=== PATIENT | female | born 1965 | race African-American/Black ===

== ENCOUNTER → 2017-06-23 | Outpatient (CLI) | payer OTHER ==
--- NOTE | 2017-06-23 15:31 | WOMENS IMAGING REPORT ---
EXAM DESCRIPTION: BILAT SCREENING MAMMO W/CAD COMPLETED DATE/TIME: 06/23/2017 3:12 pm REASON FOR STUDY: SCREENING MAMMO Z12.31 ENCNTR SCREEN MAMMOGRAM FOR MALIGNANT NEOPLASM OF JUDIE COMPARISON: Multiple since 2008 TECHNIQUE: Standard craniocaudal and mediolateral oblique views of each breast recorded using digita l acquisition. LIMITATIONS: None. FINDINGS: No masses, calcifications or architectural distortion. No areas of suspicion. Read with the assistance of CAD. .[facility] - R2 Cenova Version 1.3 .[facility] - R2 Cenova Version 1.3 .[facility] - R2 Cenova Version 2.4 .[facility] [place] Cenova Version 2.4 .[facility] - R2 B[employer] Filling Machine Operator Version 9.2 IMPRESSION: NORMAL MAMMOGRAM. BIRADS 1. BREAST DENSITY: c. The breasts are heterogeneously dense, which may obscure small masses. BIRAD: 1 NEGATIVE RECOMMENDATION: ROUTINE SCREENING Please consider bilateral screening tomosynthesis in June 2018 COMMENT: The patient has been notified of the results by letter per SA requirements. Additional no tification policies are in place for contacting patient with suspicious or incomplete findings. Quality ID #[id number]: The [employer] recommends an annual screening mammogram for women aged 40 years or over. This facility utilizes a reminder system to ensure that all patients receive reminder letters, and/or direct phone calls for appointments. This includes reminders for routine scr eening mammograms, diagnostic mammograms, or other Breast Imaging Interventions when appropriate. Th is patient will be placed in the appropriate reminder system. The [employer] (ACR) has developed recommendations for screening MRI of the breast s in certain patient populations, to be used in conjunction with mammography. Breast MRI surveillanc e may be appropriate for women with more than 20% lifetime risk of developing breast cancer as deter mined by genetic testing, significant family history of the disease, or history of mantle radiation f or Hodgkins Disease. ACR Practice Guidelines 2008. TECHNICAL DOCUMENTATION: FINDING NUMBER: (1) ASSESSMENT: (1) JOB ID: [id number] [employer]- All Rights Reserved
== END ==
LOC: WI 14:54
PROVIDERS: ATTEND Internal Medicine
DX: Z12.31 Encounter for screening mammogram for malignant neoplasm of breast (principal)
CPT/HCPCS: 77067; G0202

== ENCOUNTER → 2017-07-20 | Outpatient (CLI) | payer OTHER | LOC: WI 10:21 | PROVIDERS: ATTEND Internal Medicine | DX: N63.11 Unspecified lump in the right breast, upper outer quadrant (principal); Z53.8 Procedure and treatment not carried out for other reasons ==

== ENCOUNTER 2018-05-02 12:43 | Inpatient (IN) | payer OTHER ==
[2018-05-02] MEDS ORDERED: LEVOFLOXACIN 750 MG TABLET PO ONE (13:42)
[2018-05-02] MEDS ORDERED: KETOROLAC TROMETHAMINE INJ/PF 30 MG/1 ML SDV IV ONE (13:42)
[2018-05-02] MEDS ORDERED: DIPHENHYDRAMINE HCL 50 MG/ML VIAL IV ONE (13:42)
[2018-05-02] MEDS ORDERED: METOCLOPRAMIDE HCL INJ/PF 10 MG/2 ML SDV IV ONE (13:42)
--- NOTE | 2018-05-02 13:47 | ER Document Report ---
ED General - General Chief Complaint: Headache Stated Complaint: HEADACHE/FEVER Time Seen by Provider: 05/02/18 13:36 Notes: 53-year-old female long-established migraine headache history presents to the ER with a severe migraine headache for over a week. Seen in the emergency department earlier in a week and has not gotten better. Patient reports fever but denies neck stiffness. Complains of severe pain behind her left eye. There is no thunderclap no rapid onset. Not worst headache of life just lasting longer than it usually does she has tried everything she usually does for her headaches. She was seen in the ER that went to her family doctor today and was sent here for direct admission. We have no beds upstairs so we will see her through the ER and then admit her as a bed becomes available. TRAVEL OUTSIDE OF THE [place] IN LAST 30 DAYS: No - Related Data Allergies/Adverse Reactions: No Known Allergies Allergy (Unverified 05/02/18 13:40) Past Medical History - Social History Smoking Status: Never Smoker Frequency of alcohol use: None Drug Abuse: None Family History: Reviewed & Not Pertinent Patient has suicidal ideation: No Patient has homicidal ideation: No - Past Medical History Cardiac Medical History: Comment Only: Hx Hypercholesterolemia - Takes medication for prevention, Hx Hypertension - Takes Cozaar for prevention Pulmonary Medical History: Denies: Hx Tuberculosis Neurological Medical History: Reports: Hx Migraine Endocrine Medical History: Reports: Hx Diabetes Mellitus Type 2 Renal/ Medical History: Denies: Hx Peritoneal Dialysis Past Surgical History: Reports: Hx Section - x 2, Hx Gynecologic Surgery - d & c. Denies: Hx Pacemaker - Immunizations Hx Diphtheria, Pertussis, Tetanus Vaccination: No Review of Systems - Review of Systems Constitutional: Fever. denies: Chills EENT: denies: Sinus pressure, Sinus discharge, Throat swelling Gastrointestinal: Nausea, Vomiting. denies: Diarrhea Neurological/Psychological: Headaches -: Yes All other systems reviewed and negative Physical Exam - Vital signs Vitals: Temp Pulse Resp BP Pulse Ox 98.2 F 106 H 16 99/66 L 100 05/02/18 12:50 05/02/18 12:50 05/02/18 12:50 05/02/18 12:50 05/02/18 12:50 - Notes Notes: GENERAL_APPEARANCE: well_nourished, alert, cooperative, appears very uncomfortable VITALS: reviewed, see vital signs table. HEAD: no_swelling\tenderness on the head. EYES: PERRL, EOMI, conjunctiva_clear. NOSE: no_nasal_discharge. MOUTH: (-)decreased moisture. THROAT: no_throat _inflammation, no_airway_obstruction. no_lymphadenopathy NECK: supple, no_neck_tenderness, (-)thyromegaly. No meningismus BACK: no_back_tenderness. CHEST_WALL: no_chest_tenderness. LUNGS: no_wheezing, no_rales, no_rhonchi, (-)accessory muscle use, good air exchange bilateral. HEART: normal_rate, normal_rhythm, normal_S1, normal_S2, (-)S3, (-)S4, no_ murmur, no_rub. ABDOMEN: normal_BS, soft, no_abd_tenderness, (-)guarding, (-)rebound, no_ organomegaly, no_abd_masses. EXTREMITIES: strength 5/5 in all_extremities, good pulses in all_extremities, no_swelling\tenderness in the extremities, no_edema. SKIN: warm, dry, good_color, no_rash. No petechia MENTAL_STATUS: speech_clear, oriented_X_3, normal_affect, responds_ appropriately to questions. NEURO: Neg Motor or Sensory Deficits on exam, CN 2-12 intact, DTR 2+ symmetric x 4, No cerbellar signs Course - Re-evaluation Re-evalutation: 05/02/18 13:45 This was sent in for direct admission. I did initially ER evaluation with a head CT since he has not had one in a while Some IV fluid check some generalized labs. Dr. Lange send in a list of orders he wants complete Give a dose of antibiotics per his recommendation. Patient has no meningismus or nuchal rigidity no purpura or petechiae nothing to suggest meningitis at this time. - Vital Signs Vital signs: Temp Pulse Resp BP Pulse Ox 98.2 F 106 H 16 99/66 L 100 05/02/18 12:50 05/02/18 12:50 05/02/18 12:50 05/02/18 12:50 05/02/18 12:50 Discharge - Discharge Clinical Impression: Headache, migraine, intractable, with status migrainosus Qualifiers: Migraine type: chronic without aura Qualified Code(s): G43.711 - Chronic migraine without aura, intractable, with status migrainosus Condition: Good Disposition: ADMITTED OBSERVATION Admitting Provider: Esmer Unit Admitted: Medical Floor Referrals: TANYA LANGE MD [Primary Care Provider] - Follow up as needed
[2018-05-02 15:43] LABS: APPEARANCE,URINE SLIGHTLY-CLOUDY; BILIRUBIN,URINE NEGATIVE (NEGATIVE); COLOR,URINE YELLOW; GLUCOSE, URINE >=500 mg/dL (NEGATIVE); KETONES,URINE 80 mg/dL (NEGATIVE); LEUKOCYTE ESTERASE,URINE MODERATE (NEGATIVE); NITRITE,URINE NEGATIVE (NEGATIVE); PROTEIN,URINE NEGATIVE (NEGATIVE); URINE SPECIFIC GRAVITY 1.042; UROBILINOGEN,URINE NEGATIVE mg/dL (<2.0)
--- NOTE | 2018-05-02 16:10 | RADIOLOGY REPORT (SQ) ---
EXAM DESCRIPTION: CHEST 2 VIEWS COMPLETED DATE/TIME: 05/02/2018 3:51 pm REASON FOR STUDY: headache fever COMPARISON: 09/04/2012. EXAM PARAMETERS: NUMBER OF VIEWS: two views TECHNIQUE: Digital Frontal and Lateral radiographic views of the chest acquired. RADIATION DOSE: NA LIMITATIONS: none FINDINGS: LUNGS AND PLEURA: No opacities, masses or pneumothorax. No pleural effusion. MEDIASTINUM AND HILAR STRUCTURES: No masses or contour abnormalities. HEART AND VASCULAR STRUCTURES: Heart normal size. No evidence for failure. BONES: No acute findings. HARDWARE: None in the chest. OTHER: No other significant finding. IMPRESSION: 1 No significant interval changes since the prior examination dated 09/04/2012. No acut e findings. TECHNICAL DOCUMENTATION: JOB ID: [id number] [employer])- All Rights Reserved Reading location - IP/workstation name: [email or web address]
--- NOTE | 2018-05-02 16:17 | RADIOLOGY REPORT (SQ) ---
EXAM DESCRIPTION: CT HEAD WITHOUT COMPLETED DATE/TIME: 05/02/2018 3:37 pm REASON FOR STUDY: headache fever COMPARISON: None. TECHNIQUE: Axial images acquired through the brain without intravenous contrast. Images reviewed wi th bone, brain and subdural windows. Additional sagittal and coronal reconstructions were generated. Images stored on PACS. All CT scanners at this facility use dose modulation, iterative reconstruction, and/or weight based d osing when appropriate to reduce radiation dose to as low as reasonably achievable (ALARA). [facility]: Dose Right [facility]: CareDose [facility]: Dose Right [facility]: Teradose 4D [facility]: [employer] RADIATION DOSE: CT Rad equipment meets quality standard of care and radiation dose reduction techniq ues were employed. CTDIvol: 53.2 mGy. DLP: 1017 mGy-cm. mGy. LIMITATIONS: None. FINDINGS: VENTRICLES: Normal size and contour. CEREBRUM: No masses. No hemorrhage. No midline shift. No evidence for acute infarction. Normal gra y/white matter differentiation. No areas of low density in the white matter. CEREBELLUM: No masses. No hemorrhage. No alteration of density. No evidence for acute infarction. EXTRAAXIAL SPACES: No fluid collections. No masses. ORBITS AND GLOBE: No intra- or extraconal masses. Normal contour of globe without masses. CALVARIUM: No fracture. PARANASAL SINUSES: No fluid or mucosal thickening. SOFT TISSUES: No mass or hematoma. OTHER: No other significant finding. IMPRESSION: NORMAL BRAIN CT WITHOUT CONTRAST. EVIDENCE OF ACUTE STROKE: NO. COMMENT: Quality ID # [id number]: Final reports with documentation of one or more dose reduction techniques (e.g., Automated exposure control, adjustment of the mA and/or kV according to patient size, use of iterative reconstruction technique) TECHNICAL DOCUMENTATION: JOB ID: [id number] [employer]- All Rights Reserved Reading location - IP/workstation name: [email or web address]
[2018-05-02] MEDS: NORMAL SALINE 1000 ML 1,000 ML IV PRN ×2 (16:31→23:18)
[2018-05-02 17:00] LABS: BLOOD UREA NITROGEN 21 mg/dL (7-20); CALCIUM 10.2 mg/dL (8.4-10.2); CARBON DIOXIDE 23 mmol/L (22-30); CHLORIDE 105 mmol/L (98-107); GLUCOSE 151 mg/dL (75-110); POTASSIUM 4.5 mmol/L (3.6-5.0); SODIUM 142.6 mmol/L (137-145)
[2018-05-02 17:01] LABS: ALANINE AMINOTRANSFERASE 25 U/L (9-52); ALKALINE PHOSPHATASE 67 U/L (38-126); ANION GAP 15 (5-19); ASPARTATE AMINO TRANSFERASE 30 U/L (14-36); BILIRUBIN,DIRECT 0.3 mg/dL (0.0-0.4); BILIRUBIN,TOTAL 0.5 mg/dL (0.2-1.3); TOTAL PROTEIN 7.3 g/dL (6.3-8.2)
[2018-05-02 17:15] LABS: FREE T4 (FREE THYROXINE) 2.72 ng/dL (0.78-2.19)
[2018-05-02 17:31] LABS: THYROID STIMULATING HORMONE < 0.01 uIU/mL (0.47-4.68)
[2018-05-02] MEDS ORDERED: NORMAL SALINE 1000 ML 1,000 ML IV PRN ×2 (17:48→22:59)
[2018-05-02 17:57] LABS: ABSOLUTE EOSINOPHILS # (AUTO) 0.1 10^3/uL (0.0-0.6); ABSOLUTE LYMPHOCYTES (AUTO) 1.7 10^3/uL (0.5-4.7); ABSOLUTE MONOCYTES (AUTO) 0.7 10^3/uL (0.1-1.4); ABSOLUTE NEUT (AUTO) 2.9 10^3/uL (1.7-8.2); BASOPHILS % (AUTO) 0.3 % (0-2); EOSINOPHILS % (AUTO) 1.2 % (0-6); HEMATOCRIT 36.6 % (36.0-47.0); HEMOGLOBIN 11.8 g/dL (12.0-15.5); LYMPHOCYTES % (AUTO) 32.3 % (13-45); MEAN CORPUSCULAR HEMOGLOBIN 25.9 pg (27.0-33.4); MEAN CORPUSCULAR HGB CONC 32.1 g/dL (32.0-36.0); MEAN CORPUSCULAR VOLUME 81 fl (80-97); MONOCYTES % (AUTO) 12.3 % (3-13); PLATELET COUNT 251 10^3/uL (150-450); RED BLOOD COUNT 4.55 10^6/uL (3.72-5.28); RED CELL DISTRIBUTION WIDTH 15.2 % (11.5-14.0); SEGMENTED NEUTROPHILS % (AUTO) 53.9 % (42-78); TOTAL CELLS COUNTED % (AUTO) 100 %; WHITE BLOOD COUNT 5.4 10^3/uL (4.0-10.5)
[2018-05-02] MEDS ORDERED: LEVOFLOXACIN 750 MG/D5W RTU 750 MG/150 ML RTUPB IV SCH (18:00)
[2018-05-02] MEDS ORDERED: ENOXAPARIN SODIUM INJ 40 MG/0.4 ML DISP.SYRIN SUBCUT ONE (18:00)
[2018-05-02] MEDS: KETOROLAC TROMETHAMINE INJ/PF 30 MG/1 ML SDV IV SCH ×2 (19:26→23:17)
--- NOTE | 2018-05-02 21:39 | PDOC H&P ---
History of Present Illness Admission Date/PCP: 05/02/18 17:48 TANYA LANGE MD History of Present Illness: ANN SPANGLER is a 53 year old female she came to the office for follow-up evaluation from the emergency room, she was in the emergency room on Wednesday for evaluation of a headache, she had a history of migraine headache. She was treated in the emergency room, she was advised to follow-up with us in the office. She was seen and evaluated in the office, the blood pressure recorded was low on the heart rate was elevated. The blood work that was done in the office demonstrated low TSH, elevated T4 suggesting hyperthyroidism on direct questioning she admitted to occasional loose diarrhea, heat intolerance palpitation. There is no evidence of thyroid storm. She was admitted and treated with IV fluid pain control achieved with tramadol, the urinalysis showed bacteriuria, pyuria empirically treated with IV antibiotic. The low TSH and elevated T4 could also be from sick euthyroid syndrome, she would need repeat thyroid function test on discharge Past Medical History Cardiac Medical History: Comment Only: Hyperlipidema - Takes medication for prevention Neurological Medical History: Reports: Migraine Endocrine Medical History: Reports: Diabetes Mellitus Type 2 Past Surgical History Past Surgical History: Reports: Section - x 2 Social History Smoking Status: Never Smoker Hx Recreational Drug Use: No Drugs: None Hx Prescription Drug Abuse: No - Advance Directive Resuscitation Status: Full Code Family History Family History: Reviewed & Not Pertinent Parental Family History Reviewed: Yes Children Family History Reviewed: Yes Sibling(s) Family History Reviewed.: Yes Medication/Allergy Home Medications: Aspirin [Aspirin EC] 81 mg PO DAILY 05/02/18 Empagliflozin [Jardiance] 25 mg PO DAILY 05/02/18 Losartan Potassium [Cozaar 100 mg Tablet] 100 mg PO DAILY 05/02/18 Pravastatin Sodium [Pravachol] 40 mg PO DAILY 05/02/18 Sitagliptin Phos/Metformin HCl [Janumet 50-1,000 mg Tablet] 1 each PO Q12 Topiramate [Topamax] 50 mg PO DAILY 05/02/18 Butalb/Acetaminophen/Caffeine [Fioricet (50-325-40 mg) Tablet] 1 tab PO Q4HP PRN #30 tab 05/03/18 Metoprolol Tartrate 25 mg PO BID #60 tablet 05/03/18 Allergies/Adverse Reactions: No Known Allergies Allergy (Unverified 05/02/18 16:44) Review of Systems Constitutional: PRESENT: headache(s) Eyes: ABSENT: visual disturbances Ears: ABSENT: hearing changes Cardiovascular: ABSENT: chest pain, dyspnea on exertion, edema, orthropnea, palpitations Respiratory: ABSENT: cough, hemoptysis Gastrointestinal: ABSENT: abdominal pain, constipation, diarrhea, hematemesis, hematochezia, nausea, vomiting Genitourinary: ABSENT: dysuria, hematuria Musculoskeletal: ABSENT: joint swelling Integumentary: ABSENT: rash, wounds Neurological: ABSENT: abnormal gait, abnormal speech, confusion, dizziness, focal weakness, syncope Psychiatric: ABSENT: anxiety, depression, homidical ideation, suicidal ideation Endocrine: PRESENT: heat intolerance. ABSENT: cold intolerance, menstrual abnormalities, polydipsia, polyuria Hematologic/Lymphatic: ABSENT: easy bleeding, easy bruising, lymphadenopathy Physical Exam Vital Signs: Temp Pulse Resp BP Pulse Ox 98.5 F 99 16 90/45 L 99 05/02/18 17:15 05/02/18 17:15 05/02/18 17:15 05/02/18 17:15 05/02/18 17:15 General appearance: PRESENT: no acute distress, well-developed, well-nourished Head exam: PRESENT: atraumatic, normocephalic Eye exam: PRESENT: conjunctiva pink, EOMI, PERRLA Ear exam: PRESENT: normal external ear exam Mouth exam: PRESENT: moist, tongue midline Neck exam: PRESENT: full ROM Cardiovascular exam: PRESENT: RRR, +S1, +S2 Vascular exam: PRESENT: normal capillary refill GI/Abdominal exam: PRESENT: normal bowel sounds, soft Rectal exam: PRESENT: deferred Neurological exam: PRESENT: alert, awake, oriented to person, oriented to place , oriented to time, oriented to situation, CN II-XII grossly intact Psychiatric exam: PRESENT: appropriate affect, normal mood Skin exam: PRESENT: dry, intact, warm Results Impressions: Chest X-Ray 05/02/18 13:39 IMPRESSION: 1 No significant interval changes since the prior examination dated 09/04/2012. No acute findings. Head CT 05/02/18 13:39 IMPRESSION: NORMAL BRAIN CT WITHOUT CONTRAST. EVIDENCE OF ACUTE STROKE: NO. Assessment & Plan - Diagnosis (1) Headache, migraine, intractable, with status migrainosus Qualifiers: Migraine type: chronic without aura Qualified Code(s): G43.711 - Chronic migraine without aura, intractable, with status migrainosus Is this a current diagnosis for this admission?: Yes Plan: Start Toradol 30 mg IV every 6 4 doses (2) Hyperthyroidism Is this a current diagnosis for this admission?: Yes Plan: The blood tests suggest hyperthyroidism,she would need to have a repeat thyroid function test
[2018-05-02] MEDS ORDERED: DEXTROSE 50%-WATER SYRINGE 25 GM/50 ML DOSE IV PRN (22:57)
[2018-05-02] MEDS ORDERED: DEXTROSE 50%-WATER SYRINGE 12.5 GM/25 ML DOSE IV PRN (22:57)
[2018-05-02] MEDS ORDERED: DEXTROSE 40% GEL 15 GM TUBE X 2 PO PRN (22:57)
[2018-05-02] MEDS ORDERED: DEXTROSE 40% GEL 15 GM TUBE PO PRN (22:57)
[2018-05-02] MEDS ORDERED: GLUCAGON,HUMAN RECOMB 1 MG INJ IM PRN (22:57)
[2018-05-02] MEDS ORDERED: NORMAL SALINE 1000 ML 1,000 ML IV ONE (23:00)
[2018-05-02] MEDS ORDERED: METFORMIN HCL 500 MG TABLET PO ONE (23:00)
[2018-05-02] MEDS: INSULIN REG, HUMAN 100 UNIT/ML 3 ML VIAL (PYX) SUBCUT PRN (23:18)
[2018-05-02] MEDS ORDERED: SITAGLIPTIN PHOSPHATE 50 MG TABLET PO ONE (23:30)
[2018-05-02] MEDS ORDERED: SITAGLIPTIN PHOSPHATE 50 MG TABLET ONE (23:35)
[2018-05-03] MEDS: KETOROLAC TROMETHAMINE INJ/PF 30 MG/1 ML SDV IV SCH ×3 (05:06→18:04)
[2018-05-03] MEDS: NORMAL SALINE 1000 ML 1,000 ML IV PRN ×2 (05:07→12:14)
[2018-05-03 07:41] LABS: ALANINE AMINOTRANSFERASE 33 U/L (9-52); ALBUMIN 3.2 g/dL (3.5-5.0); ALKALINE PHOSPHATASE 56 U/L (38-126); ASPARTATE AMINO TRANSFERASE 19 U/L (14-36); BILIRUBIN,DIRECT 0.2 mg/dL (0.0-0.4); BILIRUBIN,TOTAL 0.4 mg/dL (0.2-1.3); TOTAL PROTEIN 5.8 g/dL (6.3-8.2)
[2018-05-03] MEDS: METFORMIN HCL 500 MG TABLET PO SCH ×2 (08:48→16:21)
[2018-05-03 09:12] LABS: FREE T3 8.51 pg/mL (2.77-5.27)
[2018-05-03 09:32] LABS: THYROID STIMULATING HORMONE < 0.01 uIU/mL (0.47-4.68)
[2018-05-03] MEDS: SITAGLIPTIN PHOSPHATE 50 MG TABLET PO SCH ×2 (09:34→16:21)
[2018-05-03] MEDS ORDERED: LEVOFLOXACIN 750 MG/D5W RTU 750 MG/150 ML RTUPB IV SCH (10:00)
[2018-05-03 15:52] LABS: ALANINE AMINOTRANSFERASE 23 U/L (9-52); ALKALINE PHOSPHATASE 56 U/L (38-126); ANION GAP 13 (5-19); ASPARTATE AMINO TRANSFERASE 20 U/L (14-36); BILIRUBIN,DIRECT 0.1 mg/dL (0.0-0.4); BILIRUBIN,TOTAL 0.1 mg/dL (0.2-1.3); BLOOD UREA NITROGEN 18 mg/dL (7-20); CALCIUM 9.6 mg/dL (8.4-10.2); CARBON DIOXIDE 20 mmol/L (22-30); CHLORIDE 110 mmol/L (98-107); GLUCOSE 184 mg/dL (75-110); POTASSIUM 4.7 mmol/L (3.6-5.0); SODIUM 142.5 mmol/L (137-145); TOTAL PROTEIN 5.9 g/dL (6.3-8.2)
[2018-05-03] MEDS: INSULIN REG, HUMAN 100 UNIT/ML 3 ML VIAL (PYX) SUBCUT PRN (16:20)
--- NOTE | 2018-05-03 17:06 | PDOC DISCHARGE SUMMARY ---
General - Admit/Disc Date/PCP Admission Date/Primary Care Provider: 05/02/18 17:48 TANYA LANGE MD Discharge Date: 05/03/18 - Discharge Diagnosis (1) Headache, migraine, intractable, with status migrainosus Is this a current diagnosis for this admission?: Yes (2) Hyperthyroidism Is this a current diagnosis for this admission?: Yes - Additional Information Resuscitation Status: Full Code Prescriptions: Butalb/Acetaminophen/Caffeine [Fioricet (50-325-40 mg) Tablet] 1 tab PO Q4HP PRN #30 tab PRN Reason: RX: Metoprolol Tartrate 25 mg PO BID #60 tablet Home Medications: RX: Aspirin [Aspirin EC] 81 mg PO DAILY 05/02/18 RX: Empagliflozin [Jardiance] 25 mg PO DAILY 05/02/18 RX: Losartan Potassium [Cozaar 100 mg Tablet] 100 mg PO DAILY 05/02/18 RX: Pravastatin Sodium [Pravachol] 40 mg PO DAILY 05/02/18 RX: Sitagliptin Phos/Metformin HCl [Janumet 50-1,000 mg Tablet] 1 each PO Q12 RX: Topiramate [Topamax] 50 mg PO DAILY 05/02/18 Butalb/Acetaminophen/Caffeine [Fioricet (50-325-40 mg) Tablet] 1 tab PO Q4HP PRN #30 tab 05/03/18 RX: Metoprolol Tartrate 25 mg PO BID #60 tablet 05/03/18 History of Present Illness History of Present Illness: ANN SPANGLER is a 53 year old female she came to the office for follow-up evaluation from the emergency room, she was in the emergency room on Wednesday for evaluation of a headache, she had a history of migraine headache. She was treated in the emergency room, she was advised to follow-up with us in the office. She was seen and evaluated in the office, the blood pressure recorded was low on the heart rate was elevated. The blood work that was done in the office demonstrated low TSH, elevated T4 suggesting hyperthyroidism on direct questioning she admitted to occasional loose diarrhea, heat intolerance palpitation. There is no evidence of thyroid storm. She was admitted and treated with IV fluid pain control achieved with tramadol, the urinalysis showed bacteriuria, pyuria empirically treated with IV antibiotic. The low TSH and elevated T4 could also be from sick euthyroid syndrome, she would need repeat thyroid function test on discharge Hospital Course Hospital Course: Patient was admitted for the management of severe headache, blood test showed hyperthyroidism. She has a history of severe migraine headache, she was treated with IV Toradol hydration with fluid, she was brought in for observation. The blood tests demonstrated low TSH and elevated T4, this could also represent sick euthyroid syndrome. We need to do repeat thyroid function tests outpatient Physical Exam Vital Signs: Temp Pulse Resp BP Pulse Ox 98.5 F 94 18 111/69 98 05/03/18 15:31 05/03/18 15:31 05/03/18 15:31 05/03/18 15:31 05/03/18 15:31 Intake & Output 05/02/18 05/03/18 05/04/18 06:59 06:59 06:59 Intake Total 2113 1473 Output Total 400 Balance 1713 1473 General appearance: PRESENT: no acute distress, well-developed, well-nourished Head exam: PRESENT: atraumatic, normocephalic Eye exam: PRESENT: conjunctiva pink, EOMI, PERRLA. ABSENT: scleral icterus Ear exam: PRESENT: normal external ear exam Mouth exam: PRESENT: moist, tongue midline Neck exam: PRESENT: full ROM Respiratory exam: PRESENT: clear to auscultation ceasar Cardiovascular exam: PRESENT: RRR, +S1, +S2 Vascular exam: PRESENT: normal capillary refill GI/Abdominal exam: PRESENT: normal bowel sounds, soft Rectal exam: PRESENT: deferred Neurological exam: PRESENT: alert, awake, oriented to person, oriented to place , oriented to time, oriented to situation, CN II-XII grossly intact Psychiatric exam: PRESENT: appropriate affect, normal mood Skin exam: PRESENT: dry, intact, warm Results Laboratory Results: 05/03/18 15:28 05/03/18 05/03/18 05/03/18 06:49 06:49 15:28 Sodium 142.5 Potassium 4.7 Chloride 110 H Carbon Dioxide 20 L Anion Gap 13 BUN 18 Creatinine 0.55 Est GFR ( Amer) > 60 Est GFR (Non-Af Amer) > 60 Glucose 184 H Calcium 9.6 Total Bilirubin 0.4 0.1 L AST 19 20 ALT 33 23 Alkaline Phosphatase 56 56 Total Protein 5.8 L 5.9 L Albumin 3.2 L 3.0 L TSH < 0.01 L Free T3 pg/mL 8.51 H Impressions: Chest X-Ray 05/02/18 13:39 IMPRESSION: 1 No significant interval changes since the prior examination dated 09/04/2012. No acute findings. Head CT 05/02/18 13:39 IMPRESSION: NORMAL BRAIN CT WITHOUT CONTRAST. EVIDENCE OF ACUTE STROKE: NO. Qualifiers - * PATIENT BEING DISCHARGED WITH ANY OF THE FOLLOWING DIAGNOSIS: No
[2018-05-03 17:54] VITALS: BP 105/54
[2018-05-03] MEDS ORDERED: ENOXAPARIN SODIUM INJ 40 MG/0.4 ML DISP.SYRIN SUBCUT SCH (18:00)
== END 2018-05-03 06:20 | disposition home or self-care (01) | DRG 103 ==
LOC: ER 12:43 → EH 14:52 → 2S 17:07 → OBSVTOIN 17:48
PROVIDERS: ADMIT Internal Medicine; ATTEND Internal Medicine
DX: G43.911 Migraine, unspecified, intractable, with status migrainosus (principal); I10 Essential (primary) hypertension; E05.90 Thyrotoxicosis, unspecified without thyrotoxic crisis or storm; E78.00 Pure hypercholesterolemia, unspecified; E11.9 Type 2 diabetes mellitus without complications; Z79.82 Long term (current) use of aspirin; Z79.899 Other long term (current) drug therapy
CPT/HCPCS: 36415; 70450; 71046; 80053; 80076; 81001; 82962; 83036; 83690; 84439; 84443; 84481; 85025; 87040; 87086; 96374; 96375; 99285; J1200; J1650; J1815; J1885; J1956; J2765; J7030

== ENCOUNTER → 2018-08-26 | Outpatient (CLI) | payer OTHER ==
--- NOTE | 2018-08-26 13:42 | WOMENS IMAGING REPORT ---
EXAM DESCRIPTION: 3D SCREENING MAMMO BILAT COMPLETED DATE/TIME: 08/26/2018 10:48 am REASON FOR STUDY: BILATERAL SCREENING MAMMO /Z12.31 Z12.31 ENCNTR SCREEN MAMMOGRAM FOR MALIGNANT NE OPLASM OF JUDIE COMPARISON: Multiple since 2008 TECHNIQUE: Standard craniocaudal and mediolateral oblique views of each breast recorded using digita l acquisition and breast tomosynthesis. LIMITATIONS: None. FINDINGS: No masses, calcifications or architectural distortion. No areas of suspicion. Read with the assistance of CAD. .[facility] - R2 Cenova Version 1.3 .[facility] Imaging - R2 Cenova Version 1.3 .[facility] - R2 Cenova Version 2.4 .[facility] [place] Cenova Version 2.4 .[facility] - R2 Boat Loader Helper Version 9.2 IMPRESSION: NORMAL MAMMOGRAM. BIRADS 1. BREAST DENSITY: c. The breasts are heterogeneously dense, which may obscure small masses. BIRAD: 1 NEGATIVE RECOMMENDATION: ROUTINE SCREENING Please continue yearly bilateral screening mammography/tomosynthesis in August 2019 COMMENT: The patient has been notified of the results by letter per MQSA requirements. Additional no tification policies are in place for contacting patient with suspicious or incomplete findings. Quality ID #[id number]: The [employer] recommends an annual screening mammogram for women aged 40 years or over. This facility utilizes a reminder system to ensure that all patients receive reminder letters, and/or direct phone calls for appointments. This includes reminders for routine scr eening mammograms, diagnostic mammograms, or other Breast Imaging Interventions when appropriate. Th is patient will be placed in the appropriate reminder system. The [employer] (ACR) has developed recommendations for screening MRI of the breast s in certain patient populations, to be used in conjunction with mammography. Breast MRI surveillanc e may be appropriate for women with more than 20% lifetime risk of developing breast cancer as deter mined by genetic testing, significant family history of the disease, or history of mantle radiation f or Hodgkins Disease. ACR Practice Guidelines 2008. DBT Technology DBT is a type of tomographic mammography. With conventional mammography, overlapping breast tissue ma y make lesions difficult to detect, even with good compression. DBT uses an x-ray tube that rotates a round the breast, taking images at different angles. These images are then combined to create thin sl ices of the breast that the radiologist can view as a 3D reconstruction. The [employer] unit can perform full-field digital mammograms (2D imaging); or DBT (3D imaging); or both, in a combination mode that quickly performs both the mammogram and the tomosynthesis scan while the breast is still compressed. PQRS 6045F: Fluoroscopic imaging is not utilized for breast tomosynthesis. TECHNICAL DOCUMENTATION: FINDING NUMBER: (1) ASSESSMENT: (1) JOB ID: [id number] [employer]- All Rights Reserved Reading location - IP/workstation name: [email or web address]
== END ==
LOC: WI 10:07
PROVIDERS: ATTEND Internal Medicine
DX: Z12.31 Encounter for screening mammogram for malignant neoplasm of breast (principal)
CPT/HCPCS: 77063; 77067

== ENCOUNTER 2019-05-18 11:00 | Observation (INO) | payer OTHER ==
[2019-05-18] MEDS ORDERED: ONDANSETRON HCL INJ/PF 4 MG/2 ML SDV IV PRN (11:30)
[2019-05-18] MEDS ORDERED: HYDROMORPHONE HCL INJ/PF 2 MG/ML AMPULE IV PRN (11:30)
[2019-05-18] MEDS ORDERED: DEXTROSE 50%-WATER SYRINGE 12.5 GM/25 ML DOSE IV PRN (12:00)
[2019-05-18] MEDS ORDERED: DEXTROSE 40% GEL 15 GM TUBE X 2 PO PRN (12:00)
[2019-05-18] MEDS ORDERED: DEXTROSE 50%-WATER SYRINGE 25 GM/50 ML DOSE IV PRN (12:00)
[2019-05-18] MEDS ORDERED: DEXTROSE 40% GEL 15 GM TUBE PO PRN (12:00)
[2019-05-18] MEDS ORDERED: GLUCAGON,HUMAN RECOMB 1 MG INJ IM PRN (12:00)
--- NOTE | 2019-05-18 12:48 | EKG REPORT ---
SEVERITY:- NORMAL ECG - SINUS RHYTHM : Confirmed by: Jonathan Irizarry MD 18-May-2019 12:47:31
[2019-05-18 12:53] LABS: HEMATOCRIT 41.5 % (36.0-47.0); HEMOGLOBIN 13.4 g/dL (12.0-15.5); MEAN CORPUSCULAR HEMOGLOBIN 26.4 pg (27.0-33.4); MEAN CORPUSCULAR HGB CONC 32.2 g/dL (32.0-36.0); MEAN CORPUSCULAR VOLUME 82 fl (80-97); RED BLOOD COUNT 5.06 10^6/uL (3.72-5.28); RED CELL DISTRIBUTION WIDTH 14.5 % (11.5-14.0); WHITE BLOOD COUNT 7.1 10^3/uL (4.0-10.5)
[2019-05-18 13:39] LABS: PLATELET COUNT 172 10^3/uL (150-450)
[2019-05-18 15:39] LABS: ALBUMIN 3.8 g/dL (3.5-5.0); ALKALINE PHOSPHATASE 79 U/L (38-126); ANION GAP 11 (5-19); ASPARTATE AMINO TRANSFERASE 25 U/L (14-36); BILIRUBIN,DIRECT 0.3 mg/dL (0.0-0.4); BILIRUBIN,TOTAL 0.3 mg/dL (0.2-1.3); BLOOD UREA NITROGEN 14 mg/dL (7-20); CALCIUM 9.2 mg/dL (8.4-10.2); CARBON DIOXIDE 19 mmol/L (22-30); CHLORIDE 106 mmol/L (98-107); GLUCOSE 133 mg/dL (75-110); POTASSIUM 4.1 mmol/L (3.6-5.0)
--- NOTE | 2019-05-18 15:59 | RADIOLOGY REPORT (SQ) ---
EXAM DESCRIPTION: CT HEAD WITHOUT COMPLETED DATE/TIME: 05/18/2019 2:53 pm REASON FOR STUDY: loss of consciousness COMPARISON: None. TECHNIQUE: Axial images acquired through the brain without intravenous contrast. Images reviewed wi th bone, brain and subdural windows. Additional sagittal and coronal reconstructions were generated. Images stored on PACS. All CT scanners at this facility use dose modulation, iterative reconstruction, and/or weight based d osing when appropriate to reduce radiation dose to as low as reasonably achievable (ALARA). [facility]: Dose Right [facility]: CareDose [facility]: Dose Right [facility]: Teradose 4D [facility]: [employer] RADIATION DOSE: CT Rad equipment meets quality standard of care and radiation dose reduction techniq ues were employed. CTDIvol: 48.6 mGy. DLP: 881 mGy-cm. mGy. LIMITATIONS: None. FINDINGS: VENTRICLES: Normal size and contour. CEREBRUM: No masses. No hemorrhage. No midline shift. No evidence for acute infarction. Normal gra y/white matter differentiation. No areas of low density in the white matter. CEREBELLUM: No masses. No hemorrhage. No alteration of density. No evidence for acute infarction. EXTRAAXIAL SPACES: No fluid collections. No masses. ORBITS AND GLOBE: No intra- or extraconal masses. Normal contour of globe without masses. CALVARIUM: No fracture. PARANASAL SINUSES: No fluid or mucosal thickening. SOFT TISSUES: No mass or hematoma. OTHER: No other significant finding. IMPRESSION: NORMAL BRAIN CT WITHOUT CONTRAST. EVIDENCE OF ACUTE STROKE: NO. COMMENT: Quality ID # [id number]: Final reports with documentation of one or more dose reduction techniques (e.g., Automated exposure control, adjustment of the mA and/or kV according to patient size, use of iterative reconstruction technique) TECHNICAL DOCUMENTATION: JOB ID: [id number] [employer]- All Rights Reserved Reading location - IP/workstation name: [email or web address]
[2019-05-18 16:24] LABS: APPEARANCE,URINE SLIGHTLY-CLOUDY; BILIRUBIN,URINE NEGATIVE (NEGATIVE); COLOR,URINE YELLOW; GLUCOSE, URINE >=500 mg/dL (NEGATIVE); KETONES,URINE 80 mg/dL (NEGATIVE); LEUKOCYTE ESTERASE,URINE NEGATIVE (NEGATIVE); NITRITE,URINE NEGATIVE (NEGATIVE); PROTEIN,URINE 30 mg/dL (NEGATIVE); URINE SPECIFIC GRAVITY 1.035; UROBILINOGEN,URINE NEGATIVE mg/dL (<2.0)
--- NOTE | 2019-05-18 16:34 | RADIOLOGY REPORT (SQ) ---
EXAM DESCRIPTION: CERV SP 3 VIEW OR LESS COMPLETED DATE/TIME: 05/18/2019 2:48 pm REASON FOR STUDY: pain and fall COMPARISON: CT brain same date NUMBER OF VIEWS: Three views. TECHNIQUE: AP, lateral and odontoid radiographic images acquired of the cervical spine. LIMITATIONS: None. FINDINGS: MINERALIZATION: Normal. ALIGNMENT: Anatomic. VERTEBRAE: Vertebral bodies of normal height. DISCS: No significant disc space narrowing. No large osteophytes. HARDWARE: None in the spine. SOFT TISSUES: No masses or calcifications. Lung apices clear. OTHER: No other significant finding. IMPRESSION: NO SIGNIFICANT RADIOGRAPHIC FINDING IN THE CERVICAL SPINE. TECHNICAL DOCUMENTATION: JOB ID: [id number] [employer]- All Rights Reserved Reading location - IP/workstation name: [email or web address]
--- NOTE | 2019-05-18 16:35 | RADIOLOGY REPORT (SQ) ---
EXAM DESCRIPTION: CHEST 2 VIEWS COMPLETED DATE/TIME: 05/18/2019 2:48 pm REASON FOR STUDY: baseline per Dr. Lyman COMPARISON: Chest films 05/02/2018, 09/04/2012, 04/04/2011 EXAM PARAMETERS: NUMBER OF VIEWS: two views TECHNIQUE: Digital Frontal and Lateral radiographic views of the chest acquired. RADIATION DOSE: NA LIMITATIONS: none FINDINGS: LUNGS AND PLEURA: No opacities, masses or pneumothorax. No pleural effusion. MEDIASTINUM AND HILAR STRUCTURES: No masses or contour abnormalities. HEART AND VASCULAR STRUCTURES: Heart normal size. No evidence for failure. BONES: No acute findings. HARDWARE: None in the chest. OTHER: No other significant finding. IMPRESSION: NO ACUTE RADIOGRAPHIC FINDING IN THE CHEST. TECHNICAL DOCUMENTATION: JOB ID: [id number] [employer]- All Rights Reserved Reading location - IP/workstation name: [email or web address]
[2019-05-18] MEDS: INSULIN LISPRO 100 UNIT/ML 3 ML VIAL SUBCUT SCH ×2 (19:41→22:31)
[2019-05-18] MEDS ORDERED: BUTALB/ACETAMINOPHEN/CAFFEINE 1 TAB EACH PO PRN (20:12)
[2019-05-18] MEDS ORDERED: (PENDING PHARMACY ID) (Sitagliptin Phos/Metformin Hcl [Janumet 50-1,000 Mg Tablet] 1 TAB) PO SCH (20:15)
[2019-05-18] MEDS ORDERED: (PENDING PHARMACY ID) (Magnesium Oxide [Magnesium] 400 MG) PO SCH (20:15)
--- NOTE | 2019-05-18 20:20 | PDOC H&P ---
History of Present Illness Admission Date/PCP: 05/18/19 11:00 TANYA LANGE MD History of Present Illness: ANN SPANGLER is a 54 year old female, She came to the office today for evaluation of loss of consciousness, persistent vomiting, generalized malaise. She has a history of type 2 diabetes mellitus, chronic migraine headache, she said yesterday she had episode of persistent vomiting with associated loss of consciousness she did not remember when or how she fell she only woke up to find herself on the floor that is when she realized she must have lost consciousness. There was no antecedent palpitation she did not feel dizzy, patient spouse advised her to go to the emergency room for evaluation but she says she will rather come to the office because of the long wait in the ER so she came to the office today for evaluation of her symptoms. When I saw her in the office she looks acutely ill dehydrated, I thought the best approach is to admit her to the hospital for further evaluation.The CAT scan of the head was negative for any acute pathology, initial the neck was done there was no fracture the blood work that was done including hemogram, comprehensive metabolic panel was negative Past Medical History Cardiac Medical History: Denies: Congestive Heart Failure, Myocardial Infarction, Hypertension Comment Only: Hyperlipidema - Takes medication for prevention Pulmonary Medical History: Denies: Asthma, Bronchitis, Chronic Obstructive Pulmonary Disease (COPD), Pneumonia, Tuberculosis Neurological Medical History: Reports: Migraine Denies: Seizures Endocrine Medical History: Reports: Diabetes Mellitus Type 2 Renal/ Medical History: Denies: End Stage Renal Disease GI Medical History: Denies: Cirrhosis, Gastroesophageal Reflux Disease Musculoskeltal Medical History: Denies: Arthritis Psychiatric Medical History: Denies: Bipolar Disorder, Depression Hematology: Denies: Anemia, Bleeding Tendencies Past Surgical History Past Surgical History: Reports: Section - x 2 Denies: Pacemaker Social History Smoking Status: Never Smoker Frequency of Alcohol Use: None Hx Recreational Drug Use: No Drugs: None Hx Prescription Drug Abuse: No Family History Family History: Reviewed & Not Pertinent Parental Family History Reviewed: Yes Children Family History Reviewed: Yes Sibling(s) Family History Reviewed.: Yes Medication/Allergy Home Medications: Aspirin [Aspirin 81 mg Chewable Tablet] 81 mg PO DAILY 05/18/19 Butalb/Acetaminophen/Caffeine [Fioricet (50-325-40 mg) Tablet] 1 cap PO Q4HP PRN 05/18/19 Empagliflozin [Jardiance] 25 mg PO DAILY 05/18/19 Losartan Potassium [Cozaar 100 mg Tablet] 100 mg PO DAILY 05/18/19 Magnesium Oxide [Magnesium] 400 mg PO DAILY 05/18/19 Pravastatin Sodium [Pravachol] 40 mg PO QHS 05/18/19 Pregabalin [Lyrica 75 mg Capsule] 75 mg PO Q12 05/18/19 Sitagliptin Phos/Metformin HCl [Janumet 50-1,000 mg Tablet] 1 tab PO BID 05/18/19 Topiramate [Topamax] 50 mg PO Q12 05/18/19 Allergies/Adverse Reactions: simvastatin Allergy (Intermediate, Verified 05/18/19 12:12) Urticaria Review of Systems Constitutional: PRESENT: headache(s) Eyes: ABSENT: visual disturbances Ears: ABSENT: hearing changes Cardiovascular: ABSENT: chest pain, dyspnea on exertion, edema, orthropnea, palpitations Respiratory: ABSENT: cough, hemoptysis Gastrointestinal: ABSENT: abdominal pain, constipation, diarrhea, hematemesis, hematochezia, nausea, vomiting Genitourinary: ABSENT: dysuria, hematuria Musculoskeletal: ABSENT: joint swelling Integumentary: ABSENT: rash, wounds Neurological: PRESENT: syncope. ABSENT: abnormal gait, abnormal speech, confusion, dizziness, focal weakness Psychiatric: ABSENT: anxiety, depression, homidical ideation, suicidal ideation Endocrine: ABSENT: cold intolerance, heat intolerance, menstrual abnormalities, polydipsia, polyuria Hematologic/Lymphatic: ABSENT: easy bleeding, easy bruising, lymphadenopathy Physical Exam Vital Signs: Temp Pulse Resp BP Pulse Ox 98.4 F 88 18 108/62 100 05/18/19 16:30 05/18/19 19:00 05/18/19 16:30 05/18/19 16:30 05/18/19 16:30 Intake & Output 05/17/19 05/18/19 05/19/19 06:59 06:59 06:59 Intake Total 280 Balance 280 Weight 64.5 kg General appearance: PRESENT: no acute distress, well-developed, well-nourished Head exam: PRESENT: atraumatic, normocephalic Eye exam: PRESENT: PERRLA Ear exam: PRESENT: normal external ear exam Mouth exam: PRESENT: moist, tongue midline Neck exam: PRESENT: full ROM Respiratory exam: PRESENT: clear to auscultation ceasar Cardiovascular exam: PRESENT: RRR, +S1, +S2 Vascular exam: PRESENT: normal capillary refill GI/Abdominal exam: PRESENT: normal bowel sounds, soft Rectal exam: PRESENT: deferred Neurological exam: PRESENT: alert Psychiatric exam: PRESENT: appropriate affect, normal mood Skin exam: PRESENT: dry, intact, warm Results Laboratory Results: 05/18/19 12:10 05/18/19 15:07 05/18/19 05/18/19 05/18/19 12:10 12:10 13:50 WBC 7.1 RBC 5.06 Hgb 13.4 Hct 41.5 MCV 82 MCH 26.4 L MCHC 32.2 RDW 14.5 H Plt Count 172 Sodium Cancelled Potassium Cancelled Chloride Cancelled Carbon Dioxide Cancelled Anion Gap Cancelled BUN Cancelled Creatinine Cancelled Est GFR ( Amer) Cancelled Est GFR (Non-Af Amer) Cancelled Glucose Cancelled Calcium Cancelled Total Bilirubin Cancelled AST Cancelled Alkaline Phosphatase Cancelled Total Protein Cancelled Albumin Cancelled Urine Color YELLOW Urine Appearance SLIGHTLY-CLOUDY Urine pH 5.0 Ur Specific Godley 1.035 Urine Protein 30 H Urine Glucose (UA) >=500 H Urine Ketones 80 H Urine Blood SMALL H Urine Nitrite NEGATIVE Ur Leukocyte Esterase NEGATIVE Urine WBC (Auto) 1 Urine RBC (Auto) 2 05/18/19 15:07 WBC RBC Hgb Hct MCV MCH MCHC RDW Plt Count Sodium 136.4 L Potassium 4.1 Chloride 106 Carbon Dioxide 19 L Anion Gap 11 BUN 14 Creatinine 0.49 L Est GFR ( Amer) > 60 Est GFR (Non-Af Amer) Glucose 133 H Calcium 9.2 Total Bilirubin 0.3 AST 25 Alkaline Phosphatase 79 Total Protein 7.0 Albumin 3.8 Urine Color Urine Appearance Urine pH Ur Specific Godley Urine Protein Urine Glucose (UA) Urine Ketones Urine Blood Urine Nitrite Ur Leukocyte Esterase Urine WBC (Auto) Urine RBC (Auto) Impressions: Cervical Spine X-Ray 05/18/19 00:00 IMPRESSION: NO SIGNIFICANT RADIOGRAPHIC FINDING IN THE CERVICAL SPINE. Chest X-Ray 05/18/19 00:00 IMPRESSION: NO ACUTE RADIOGRAPHIC FINDING IN THE CHEST. Head CT 05/18/19 00:00 IMPRESSION: NORMAL BRAIN CT WITHOUT CONTRAST. EVIDENCE OF ACUTE STROKE: NO. Assessment & Plan - Diagnosis (1) Syncope Qualifiers: Syncope type: unspecified Qualified Code(s): R55 - Syncope and collapse Is this a current diagnosis for this admission?: Yes Plan: The etiology of the syncope is not clear, she is admitted for observation (2) Dehydration Is this a current diagnosis for this admission?: Yes Plan: Hydrate with IV fluid (3) Vomiting Qualifiers: Vomiting type: unspecified Vomiting Intractability: non-intractable Nausea presence: without nausea Qualified Code(s): R11.11 - Vomiting without nausea Is this a current diagnosis for this admission?: Yes
[2019-05-18 21:32] LABS: CREATINE KINASE MB 0.56 ng/mL (<4.55); TROPONIN I < 0.012 ng/mL
[2019-05-18] MEDS ORDERED: (PENDING PHARMACY ID) (Pravastatin Sodium [Pravachol] 40 MG) PO SCH (22:00)
[2019-05-18] MEDS: ASPIRIN 81 MG TABLET, CHEWABLE PO SCH (22:31)
[2019-05-18] MEDS: METFORMIN HCL 500 MG TABLET PO SCH (22:31)
[2019-05-18] MEDS: ATORVASTATIN CALCIUM 10 MG TABLET PO SCH (22:32)
[2019-05-18] MEDS: SITAGLIPTIN PHOSPHATE 50 MG TABLET PO SCH (22:32)
[2019-05-18] MEDS: PREGABALIN 75 MG CAPSULE PO SCH (22:32)
[2019-05-18] MEDS: TOPIRAMATE 25 MG TABLET PO SCH ×2 (22:33→22:38)
[2019-05-18] MEDS: MAGNESIUM OXIDE 400 MG TABLET PO SCH (22:33)
[2019-05-18] MEDS: LOSARTAN POTASSIUM 50 MG TABLET PO SCH (22:33)
[2019-05-18] MEDS: NORMAL SALINE 1000 ML 1,000 ML IV PRN (22:36)
[2019-05-19 06:14] LABS: CREATINE KINASE MB 0.44 ng/mL (<4.55)
[2019-05-19 06:17] LABS: TROPONIN I < 0.012 ng/mL
[2019-05-19] MEDS: NORMAL SALINE 1000 ML 1,000 ML IV PRN ×3 (06:17→21:34)
[2019-05-19] MEDS: INSULIN LISPRO 100 UNIT/ML 3 ML VIAL SUBCUT SCH ×4 (08:13→21:26)
[2019-05-19] MEDS: LOSARTAN POTASSIUM 50 MG TABLET PO SCH (08:14)
[2019-05-19] MEDS: ASPIRIN 81 MG TABLET, CHEWABLE PO SCH (09:03)
[2019-05-19] MEDS: PREGABALIN 75 MG CAPSULE PO SCH ×2 (09:03→21:27)
[2019-05-19] MEDS: SITAGLIPTIN PHOSPHATE 50 MG TABLET PO SCH ×2 (09:03→21:27)
[2019-05-19] MEDS: METFORMIN HCL 500 MG TABLET PO SCH ×2 (09:03→21:27)
[2019-05-19] MEDS: MAGNESIUM OXIDE 400 MG TABLET PO SCH (09:04)
[2019-05-19] MEDS: TOPIRAMATE 25 MG TABLET PO SCH ×2 (09:04→21:28)
[2019-05-19 13:27] LABS: CREATINE KINASE MB 0.48 ng/mL (<4.55)
[2019-05-19 13:31] LABS: TROPONIN I < 0.012 ng/mL
[2019-05-19] MEDS ORDERED: BISACODYL 5 MG TABEC PO ONE (16:30)
--- NOTE | 2019-05-19 19:04 | PDOC DISCHARGE SUMMARY ---
General - Admit/Disc Date/PCP Admission Date/Primary Care Provider: 05/18/19 11:00 TANYA LANGE MD Discharge Date: 05/19/19 - Discharge Diagnosis (1) Syncope Is this a current diagnosis for this admission?: Yes (2) Dehydration Is this a current diagnosis for this admission?: Yes (3) Vomiting Is this a current diagnosis for this admission?: Yes - Additional Information Home Medications: Aspirin [Aspirin 81 mg Chewable Tablet] 81 mg PO DAILY 05/18/19 Butalb/Acetaminophen/Caffeine [Fioricet (50-325-40 mg) Tablet] 1 cap PO Q4HP PRN 05/18/19 Empagliflozin [Jardiance] 25 mg PO DAILY 05/18/19 Losartan Potassium [Cozaar 100 mg Tablet] 100 mg PO DAILY 05/18/19 Magnesium Oxide [Magnesium] 400 mg PO DAILY 05/18/19 Pravastatin Sodium [Pravachol] 40 mg PO QHS 05/18/19 Pregabalin [Lyrica 75 mg Capsule] 75 mg PO Q12 05/18/19 Sitagliptin Phos/Metformin HCl [Janumet 50-1,000 mg Tablet] 1 tab PO BID 05/18/19 Topiramate [Topamax] 50 mg PO Q12 05/18/19 History of Present Illness History of Present Illness: ANN SPANGLER is a 54 year old female, She came to the office today for evaluation of loss of consciousness, persistent vomiting, generalized malaise. She has a history of type 2 diabetes mellitus, chronic migraine headache, she said yesterday she had episode of persistent vomiting with associated loss of consciousness she did not remember when or how she fell she only woke up to find herself on the floor that is when she realized she must have lost consciousness. There was no antecedent palpitation she did not feel dizzy, patient spouse advised her to go to the emergency room for evaluation but she says she will rather come to the office because of the long wait in the ER so she came to the office today for evaluation of her symptoms. When I saw her in the office she looks acutely ill dehydrated, I thought the best approach is to admit her to the hospital for further evaluation.The CAT scan of the head was negative for any acute pathology, initial the neck was done there was no fracture the blood work that was done including hemogram, comprehensive metabolic panel was negative Hospital Course Hospital Course: Patient was admitted for the management of vomiting, dehydration, syncope. No specific etiology was found for the syncope the comprehensive metabolic panel was normal. She was admitted for observation, she was treated with IV fluid. CAT scan of the head was negative. Patient felt better with hydration, she also complained of constipation she was given Dulcolax with good results Physical Exam Vital Signs: Temp Pulse Resp BP Pulse Ox 98.6 F 73 18 112/64 100 05/19/19 16:41 05/19/19 16:41 05/19/19 16:41 05/19/19 16:41 05/19/19 16:41 Intake & Output 05/18/19 05/19/19 05/20/19 06:59 06:59 06:59 Intake Total 1202 1840 Output Total 1000 Balance 202 1840 Weight 70.4 kg General appearance: PRESENT: no acute distress Head exam: PRESENT: atraumatic, normocephalic Eye exam: PRESENT: PERRLA. ABSENT: scleral icterus Ear exam: PRESENT: normal external ear exam Mouth exam: PRESENT: moist, tongue midline Neck exam: PRESENT: full ROM Respiratory exam: PRESENT: clear to auscultation ceasar Cardiovascular exam: PRESENT: RRR, +S1, +S2 Pulses: PRESENT: normal dorsalis pedis pul, +2 pedal pulses bilateral Vascular exam: PRESENT: normal capillary refill GI/Abdominal exam: PRESENT: normal bowel sounds, soft Rectal exam: PRESENT: deferred Neurological exam: PRESENT: alert, awake, oriented to person, oriented to place, oriented to time, oriented to situation, CN II-XII grossly intact. ABSENT: motor sensory deficit Psychiatric exam: PRESENT: appropriate affect, normal mood Skin exam: PRESENT: dry, intact, warm Results Laboratory Results: 05/18/19 12:10 05/18/19 15:07 05/18/19 05/18/19 05/19/19 20:50 20:50 05:10 Creatine Kinase 28 L 32 CK-MB (CK-2) 0.56 Troponin I < 0.012 05/19/19 05/19/19 05/19/19 05:10 12:49 12:49 Creatine Kinase 37 CK-MB (CK-2) 0.44 0.48 Troponin I < 0.012 < 0.012 Impressions: Cervical Spine X-Ray 05/18/19 00:00 IMPRESSION: NO SIGNIFICANT RADIOGRAPHIC FINDING IN THE CERVICAL SPINE. Chest X-Ray 05/18/19 00:00 IMPRESSION: NO ACUTE RADIOGRAPHIC FINDING IN THE CHEST. Head CT 05/18/19 00:00 IMPRESSION: NORMAL BRAIN CT WITHOUT CONTRAST. EVIDENCE OF ACUTE STROKE: NO. Qualifiers - * PATIENT BEING DISCHARGED WITH ANY OF THE FOLLOWING DIAGNOSIS: No VTE patient discharged on overlapping Therapy?: No Reason(s) for not prescribing Overlap Therapy:: Not indicated Stroke Pt being discharged on Anti-thrombolytic therapy?: No Reason(s) for not prescribing Anti-thrombolytic therapy:: Not indicated Stroke Pt being discharged on Anti-coagulation therapy?: No Reason(s) for not prescribing Anti-coagulation therapy:: Not indicated Stroke Pt being discharged on Statins?: No Reason(s) for not prescribing Statins therapy:: Not indicated OR Pt being discharged on Aspirin therapy?: No Reason(s) for not prescribing Aspirin therapy:: Not indicated OR Pt being discharged on Statins?: No Reason(s) for not prescribing Statin therapy:: Not indicated OR Pt discharged ACEI/ARBS?: No Reason(s) for not prescribing ACEI/ARBS:: Not indicated Acute Heart Failure - Is this a Heart Failure Patient?: No Follow-up Appointment scheduled within 7 days?: Yes
[2019-05-19] MEDS: ATORVASTATIN CALCIUM 10 MG TABLET PO SCH (21:27)
[2019-05-20] MEDS: NORMAL SALINE 1000 ML 1,000 ML IV PRN (05:42)
[2019-05-20 08:49] VITALS: BP 126/69
[2019-05-20] MEDS: INSULIN LISPRO 100 UNIT/ML 3 ML VIAL SUBCUT SCH (09:02)
[2019-05-20] MEDS: LOSARTAN POTASSIUM 50 MG TABLET PO SCH (09:09)
[2019-05-20] MEDS: MAGNESIUM OXIDE 400 MG TABLET PO SCH (09:09)
[2019-05-20] MEDS: PREGABALIN 75 MG CAPSULE PO SCH (09:10)
[2019-05-20] MEDS: SITAGLIPTIN PHOSPHATE 50 MG TABLET PO SCH (09:11)
[2019-05-20] MEDS: ASPIRIN 81 MG TABLET, CHEWABLE PO SCH (09:11)
[2019-05-20] MEDS: METFORMIN HCL 500 MG TABLET PO SCH (09:11)
[2019-05-20] MEDS: TOPIRAMATE 25 MG TABLET PO SCH (09:12)
== END 2019-05-20 09:45 | disposition home or self-care (01) ==
LOC: EH 11:00 → INTOOBSV 11:00 → 3S 11:05
PROVIDERS: ADMIT Internal Medicine; ATTEND Internal Medicine
DX: R55 Syncope and collapse (principal); E86.0 Dehydration; R11.11 Vomiting without nausea; E11.9 Type 2 diabetes mellitus without complications; K59.00 Constipation, unspecified; E78.5 Hyperlipidemia, unspecified; R51 Headache; Z79.82 Long term (current) use of aspirin; Z79.899 Other long term (current) drug therapy
CPT/HCPCS: 36415 ×2; 87086; 82553 ×2; 82962 ×3; 82550 ×2; 85027; 80076; 80048; 81001; 84484 ×2; 83036; 85379; 72040; 71046; 70450; 93005; 93010; G0378 ×3; G0379; J3490 ×3; J1815 ×2; J1170; J7030 ×3

== ENCOUNTER → 2019-10-10 | Outpatient (CLI) | payer OTHER ==
--- NOTE | 2019-10-10 16:04 | WOMENS IMAGING REPORT ---
EXAM DESCRIPTION: 3D SCREENING MAMMO BILAT COMPLETED DATE/TIME: 10/10/2019 10:45 am REASON FOR STUDY: Z12.31 SCREENING MAMMO Z12.31 ENCNTR SCREEN MAMMOGRAM FOR MALIGNANT NEOPLASM OF B RE COMPARISON: 08/26/2018 and 06/23/2017. EXAM PARAMETERS: Views: Standard craniocaudal and mediolateral oblique views of each breast recorded using digital acquisition and breast tomosynthesis. Read with the assistance of CAD. .[facility] - R2 [employer] Engineer Version 9.2 LIMITATIONS: None. FINDINGS: No suspicious masses, suspicious calcifications or architectural distortion. No areas of c oncern. IMPRESSION: NEGATIVE MAMMOGRAM. BIRADS 1. BREAST DENSITY: c. The breasts are heterogeneously dense, which may obscure small masses. BIRAD: ASSESSMENT: 1 NEGATIVE RECOMMENDATION: ROUTINE SCREENING COMMENT: The patient has been notified of the results by letter per MQSA requirements. Additional no tification policies are in place for contacting patient with suspicious or incomplete findings. Quality ID #[id number]: The [employer] recommends an annual screening mammogram for women aged 40 years or over. This facility utilizes a reminder system to ensure that all patients receive reminder letters, and/or direct phone calls for appointments. This includes reminders for routine scr eening mammograms, diagnostic mammograms, or other Breast Imaging Interventions when appropriate. Th is patient will be placed in the appropriate reminder system. TECHNICAL DOCUMENTATION: FINDING NUMBER: (1) ASSESSMENT: (1) JOB ID: [id number] [employer]- All Rights Reserved Reading location - IP/workstation name: [email or web address]
== END ==
LOC: WI 10:25
PROVIDERS: ATTEND Internal Medicine
DX: Z12.31 Encounter for screening mammogram for malignant neoplasm of breast (principal)
CPT/HCPCS: 77063; 77067